=== PATIENT | female | born 2005 | race Caucasian/White ===

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

== ENCOUNTER 2024-01-14 12:10 | Emergency (ER) | payer BC, OTHER ==
[2024-01-14 12:14] VITALS: RESP 16
[2024-01-14 12:53] LABS: Basophils % (A) 0 %; Eosinophils # (A) 0.1 k/uL (0-0.7); Eosinophils % (A) 1 %; HCT 40.6 % (34.0-46.0); HGB 13.9 gm/dL (11.4-16.0); Lymphocytes # (A) 2.1 k/uL (1.0-4.8); Lymphocytes % (A) 23 %; MCH 28.8 pg (25.0-35.0); MCHC 34.3 g/dL (31.0-37.0); Mean Platelet Volume 8.3; Monocytes # (A) 0.4 k/uL (0-1.0); Monocytes % (A) 4 %; Neutrophils # (A) 6.2 k/uL (1.3-7.7); Neutrophils % (A) 69 %; Platelet Count 364 k/uL (150-450); RBC 4.83 m/uL (3.80-5.40); RDW 12.9 % (11.5-15.5); WBC 8.9 k/uL (4.0-11.0)
[2024-01-14 12:56] LABS: Appearance,Urine Clear (Clear); Bilirubin,Urine Negative (Negative); Blood,Urine Negative (Negative); Color,Urine Colorless; Glucose,Urine (UA) Negative (Negative); Ketones,Urine Negative (Negative); Leukocyte Esterase,Urine Negative (Negative); Nitrite,Urine Negative (Negative); Protein,Urine Negative (Negative); Specific Gravity,Urine 1.004 (1.001-1.035); Urobilinogen,Urine <2.0 mg/dL (<2.0)
--- NOTE | 2024-01-14 12:58 | ED ---
Abdominal Pain HPI - General Chief Complaint: Abdominal Pain Stated Complaint: abd pain Time Seen by Provider: 01/14/24 12:24 Source: patient, RN notes reviewed Mode of arrival: ambulatory Limitations: no limitations - History of Present Illness Initial Comments: This is a 18-year-old female presenting with mother for right lower quadrant pain (8.5/10) x 20 minutes. Patient describes pain as sudden onset, constant and sharp radiating to her left lower quadrant. Patient states pain is worsening with associated nausea and presyncope. Patient denies fever, chills, vomiting, diarrhea, constipation, anorexia, urinary symptoms. MD Complaint: abdominal pain Onset/Timin -: minutes(s) Location: RLQ Radiation: LLQ Severity scale (1-10): 9 Quality: sharp Consistency: constant Associated Symptoms: nausea - Related Data Home Medications Medication Instructions Recorded Confirmed Adapalene/Benzoyl Peroxide 1 applic TOPICAL DAILY 02/19/21 02/19/21 [Adapalene-Bnzyl Perox 0.1-2.5%] Doxycycline Hyclate 100 mg PO BID 02/19/21 02/19/21 norethindrone-e.estradioL-iron 1 tab PO DAILY 02/19/21 02/19/21 [Aurovela Fe 1-20 Tablet] Allergies Allergy/AdvReac Type Severity Reaction Status Date / Time No Known Allergies Allergy Verified 01/14/24 12:13 Review of Systems ROS Statement: Those systems with pertinent positive or pertinent negative responses have been documented in the HPI. ROS Other: All systems not noted in ROS Statement are negative. Past Medical History Past Medical History: No Reported History History of Any Multi-Drug Resistant Organisms: None Reported Past Surgical History: No Surgical Hx Reported Past Psychological History: No Psychological Hx Reported Past Alcohol Use History: None Reported Past Drug Use History: None Reported General Exam Limitations: no limitations General appearance: alert, in no apparent distress Head exam: Present: atraumatic, normocephalic, normal inspection Eye exam: Present: normal appearance, PERRL, EOMI. Absent: scleral icterus, conjunctival injection, periorbital swelling ENT exam: Present: normal exam, mucous membranes moist Neck exam: Present: normal inspection. Absent: tenderness, meningismus, lymphadenopathy Respiratory exam: Present: normal lung sounds bilaterally. Absent: respiratory distress, wheezes, rales, rhonchi, stridor Cardiovascular Exam: Present: regular rate, normal rhythm, normal heart sounds. Absent: systolic murmur, diastolic murmur, rubs, gallop, clicks GI/Abdominal exam: Present: soft, tenderness (Positive right lower quadrant and McBurney point tenderness. Positive epigastric tenderness. Positive right abdominal tenderness. Negative Duarte sign), diminished bowel sounds, hypoactive bowel sounds. Absent: distended, guarding, rebound, rigid Extremities exam: Present: normal inspection, full ROM, normal capillary refill, other (Bilateral posterior tibialis pulse +2). Absent: tenderness, pedal edema, joint swelling, calf tenderness Back exam: Present: normal inspection Neurological exam: Present: alert, oriented X3, CN II-XII intact Psychiatric exam: Present: normal affect, normal mood Skin exam: Present: warm, dry, intact, normal color. Absent: rash Course Vital Signs 01/14/24 12:12 Temperature 98.8 F Pulse Rate 92 Respiratory 16 Rate Blood Pressure 121/72 O2 Sat by Pulse 99 Oximetry Medical Decision Making - Medical Decision Making Was pt. sent in by a medical professional or institution (, PA, TUNNEL WORKER, urgent c are, hospital, or [facility]...) When possible be specific @ -[No] Did you speak to anyone other than the patient for history (EMS, parent, family, police, friend...)? What history was obtained from this source @ -[No] Did you review nursing and triage notes (agree or disagree)? Why? @ -[I reviewed and agree with nursing and triage notes] Were old charts reviewed (outside hosp., previous admission, EMS record, old EKG, old radiological studies, urgent care reports/EKG's, [facility] records)? Report findings @ -[No old charts were reviewed] Differential Diagnosis (chest pain, altered mental status, abdominal pain women, abdominal pain men, vaginal bleeding, weakness, fever, dyspnea, syncope, headache, dizziness, GI bleed, back pain, seizure, CVA, palpatations, mental health, musculoskeletal)? @ -Differential Abdominal Pain Women: Appendicitis, Cholecystitis, diverticulosis, ischemic bowel, pancreatitis, hepatitis, UTI, gastroenteritis, AAA, incarcerated hernia, bowel obstruction, constipation, inflammatory bowel, hepatitis, peptic ulcer disease, splenic infarction, perforated viscus, vulvitis, ovarian torsion, PID, kidney stone, placenta abruption, this is not meant to be an all-inclusive list EKG interpreted by me (3pts min.). @ -Not done X-rays interpreted by me (1pt min.). @ -[None done] CT interpreted by me (1pt min.). @ -[None done] U/S interpreted by me (1pt. min.). @ -[None done] What testing was considered but not performed or refused? (CT, X-rays, U/S, labs)? Why? @ -[None] What meds were considered but not given or refused? Why? @ -[None] Did you discuss the management of the patient with other professionals (professionals i.e. DrCarrol, PA, TUNNEL WORKER, lab, RT, psych nurse, psychologist social, expediter service order, teacher, alumni relations officer, classification case manager)? Give summary @ -[No] Was smoking cessation discussed for >3mins.? @ -[No] Was critical care preformed (if so, how long)? @ -[No] Were there social determinants of health that impacted care today? How? (Homelessness, low income, unemployed, alcoholism, drug addiction, transportation, low edu. Level, literacy, decrease access to med. care, correction, rehab)? @ -[No] Was there de-escalation of care discussed even if they declined (Discuss DNR or withdrawal of care, Hospice)? DNR status @ -[No] What co-morbidities impacted this encounter? (DM, HTN, Smoking, COPD, CAD, Cancer, CVA, ARF, Chemo, Hep., AIDS, mental health diagnosis, sleep apnea, morbid obesity)? @ -[None] Was patient admitted / discharged? Hospital course, mention meds given and route, prescriptions, significant lab abnormalities, going to OR and other pertinent info. @ -[hospital course] Undiagnosed new problem with uncertain prognosis? @ -[No] Drug Therapy requiring intensive monitoring for toxicity (Heparin, Nitro, Insulin, Cardizem)? @ -[No] Were any procedures done? @ -[No] Diagnosis/symptom? @ -[default] Acute, or Chronic, or Acute on Chronic? @ -Acute Uncomplicated (without systemic symptoms) or Complicated (systemic symptoms)? @ -Complicated Side effects of treatment? @ -[No] Exacerbation, Progression, or Severe Exacerbation? @ -[No] Poses a threat to life or bodily function? How? (Chest pain, USA, NM, pneumonia, PE, COPD, DKA, ARF, appy, cholecystitis, CVA, Diverticulitis, Homicidal, Suicidal, threat to staff... and all critical care pts) @ -[No] - Lab Data Result diagrams: 01/14/24 12:40 01/14/24 12:40 Lab Results 01/14/24 01/14/24 01/14/24 Range/Units 12:40 12:40 12:40 WBC 8.9 (4.0-11.0) k/uL RBC 4.83 (3.80-5.40) m/uL Hgb 13.9 (11.4-16.0) gm/dL Hct 40.6 (34.0-46.0) % MCV 84.0 (80.0-100.0) fL MCH 28.8 (25.0-35.0) pg MCHC 34.3 (31.0-37.0) g/dL RDW 12.9 (11.5-15.5) % Plt Count 364 (150-450) k/uL MPV 8.3 Neutrophils % 69 % Lymphocytes % 23 % Monocytes % 4 % Eosinophils % 1 % Basophils % 0 % Neutrophils # 6.2 (1.3-7.7) k/uL Lymphocytes # 2.1 (1.0-4.8) k/uL Monocytes # 0.4 (0-1.0) k/uL Eosinophils # 0.1 (0-0.7) k/uL Basophils # 0.0 (0-0.2) k/uL Sodium 138 (137-145) mmol/L Potassium 4.4 (3.5-5.1) mmol/L Chloride 105 (98-107) mmol/L Carbon Dioxide 22 (22-30) mmol/L Anion Gap 11 mmol/L BUN 10 (7-17) mg/dL Creatinine 0.78 (0.52-1.04) mg/dL Est GFR (CKD-EPI)AfAm >90 (>60 ml/min/1.73 sqM) Est GFR (CKD-EPI)NonAf >90 (>60 ml/min/1.73 sqM) Glucose 105 H (74-99) mg/dL Plasma Lactic Acid Yuri 2.5 H* (0.7-2.0) mmol/L Calcium 9.2 (8.4-10.2) mg/dL Total Bilirubin 0.6 (0.2-1.3) mg/dL AST 23 (14-36) U/L ALT 16 (4-34) U/L Alkaline Phosphatase 51 (38-126) U/L Total Protein 7.6 (6.3-8.2) g/dL Albumin 4.6 (3.5-5.0) g/dL Amylase 51 (30-110) U/L Lipase 47 (23-300) U/L Urine Color Urine Appearance (Clear) Urine pH (5.0-8.0) Ur Specific [place] (1.001-1.035) Urine Protein (Negative) Urine Glucose (UA) (Negative) Urine Ketones (Negative) Urine Blood (Negative) Urine Nitrite (Negative) Urine Bilirubin (Negative) Urine Urobilinogen (<2.0) mg/dL Ur Leukocyte Esterase (Negative) Urine HCG, Qual (Not Detectd) 01/14/24 01/14/24 Range/Units 12:40 12:40 WBC (4.0-11.0) k/uL RBC (3.80-5.40) m/uL Hgb (11.4-16.0) gm/dL Hct (34.0-46.0) % MCV (80.0-100.0) fL MCH (25.0-35.0) pg MCHC (31.0-37.0) g/dL RDW (11.5-15.5) % Plt Count (150-450) k/uL MPV Neutrophils % % Lymphocytes % % Monocytes % % Eosinophils % % Basophils % % Neutrophils # (1.3-7.7) k/uL Lymphocytes # (1.0-4.8) k/uL Monocytes # (0-1.0) k/uL Eosinophils # (0-0.7) k/uL Basophils # (0-0.2) k/uL Sodium (137-145) mmol/L Potassium (3.5-5.1) mmol/L Chloride (98-107) mmol/L Carbon Dioxide (22-30) mmol/L Anion Gap mmol/L BUN (7-17) mg/dL Creatinine (0.52-1.04) mg/dL Est GFR (CKD-EPI)AfAm (>60 ml/min/1.73 sqM) Est GFR (CKD-EPI)NonAf (>60 ml/min/1.73 sqM) Glucose (74-99) mg/dL Plasma Lactic Acid Yuri (0.7-2.0) mmol/L Calcium (8.4-10.2) mg/dL Total Bilirubin (0.2-1.3) mg/dL AST (14-36) U/L ALT (4-34) U/L Alkaline Phosphatase (38-126) U/L Total Protein (6.3-8.2) g/dL Albumin (3.5-5.0) g/dL Amylase (30-110) U/L Lipase (23-300) U/L Urine Color Colorless Urine Appearance Clear (Clear) Urine pH 6.0 (5.0-8.0) Ur Specific [place] 1.004 (1.001-1.035) Urine Protein Negative (Negative) Urine Glucose (UA) Negative (Negative) Urine Ketones Negative (Negative) Urine Blood Negative (Negative) Urine Nitrite Negative (Negative) Urine Bilirubin Negative (Negative) Urine Urobilinogen <2.0 (<2.0) mg/dL Ur Leukocyte Esterase Negative (Negative) Urine HCG, Qual Not Detected (Not Detectd) Disposition Clinical Impression: Ovarian cyst Disposition: HOME SELF-CARE Condition: Good Instructions (If sedation given, give patient instructions): Ovarian Cyst (ED) Is patient prescribed a controlled substance at d/c from ED?: No Referrals: Peña Jasmine DO [Primary Care Provider] - 1-2 days Time of Disposition: 14:51
[2024-01-14 13:13] LABS: ALT 16 U/L (4-34); AST 23 U/L (14-36); African American GFR (CKD) >90 (>60 ml/min/1.73 sqM); Albumin 4.6 g/dL (3.5-5.0); Alkaline Phosphatase 51 U/L (38-126); Amylase 51 U/L (30-110); Anion Gap 11 mmol/L; Blood Urea Nitrogen 10 mg/dL (7-17); Calcium 9.2 mg/dL (8.4-10.2); Carbon Dioxide 22 mmol/L (22-30); Chloride 105 mmol/L (98-107); Glucose 105 mg/dL (74-99); Lipase 47 U/L (23-300); Non-African American GFR(CKD) >90 (>60 ml/min/1.73 sqM); Potassium 4.4 mmol/L (3.5-5.1); Sodium 138 mmol/L (137-145); Total Bilirubin 0.6 mg/dL (0.2-1.3); Total Protein 7.6 g/dL (6.3-8.2)
--- NOTE | 2024-01-14 13:50 | CT ---
EXAMINATION TYPE: CT abdomen pelvis w con CT DLP: 676.5 mGycm, Automated exposure control for dose reduction was used. DATE OF EXAM: 01/14/2024 1:39 PM COMPARISON: CT chest abdomen and pelvis 02/19/2021 CLINICAL INDICATION:Female, 18 years old with history of RLQ abdominal pain; rlq pain TECHNIQUE: Standard CT of the abdomen and pelvis following the administration of 100 cc of Isovue 3 00 IV contrast material. Coronal and sagittal reformats were performed. FINDINGS: LOWER CHEST: Unremarkable ABDOMEN LIVER: Unremarkable GALLBLADDER AND BILE DUCTS: Unremarkable. PANCREAS: Unremarkable. SPLEEN: Unremarkable. ADRENAL GLANDS: Unremarkable. KIDNEYS AND URETERS: No evidence of hydronephrosis or renal calculus. The kidneys enhance symmetrical ly. Contrast is demonstrated within both collecting systems on the delayed phase. PELVIS BLADDER: Incompletely distended but grossly unremarkable. REPRODUCTIVE: Unremarkable anteverted uterus. Right ovarian 4.5 cm cystic lesion. ABDOMEN & PELVIS STOMACH AND BOWEL: Stomach and duodenum are unremarkable. The appendix is within normal limits. No fo macho bowel wall thickening. No evidence of bowel obstruction. PERITONEUM: No evidence of pneumoperitoneum. Small amount of simple free fluid within the right adnex a and extending into the pelvic cul-de-sac. VASCULATURE: No evidence of aortic aneurysm. MUSCULOSKELETAL: No acute osseous abnormalities LYMPH NODES: No evidence for lymphadenopathy. SOFT TISSUE/ABDOMINAL WALL: Unremarkable IMPRESSION: 1. Small amount of simple free fluid within the right adnexa extending in the pelvic cul-de-sac. Rig ht ovarian cystic 4.5 cm lesion which may represent a dominant follicle/ovarian cyst. Findings may re present ruptured cyst. Consider further evaluation with pelvic ultrasound as clinically indicated. 2. The appendix is within normal limits. [facility], , 01/14/2024 1:48 PM
[2024-01-14] MEDS: SODIUM CHLORIDE 0.9% 1,000 ML IV STA (14:07)
--- NOTE | 2024-01-14 14:49 | US ---
EXAMINATION TYPE: US pelvic complete DATE OF EXAM: 01/14/2024 COMPARISON: CT same day CLINICAL INDICATION: Female, 18 years old with history of Right lower quadrant, ovary; TECHNIQUE: Transabdominal (TA). Transabdominal grayscale sonographic images of the pelvis were acquired. FINDINGS: Date of LMP: 1-2 weeks ago EXAM MEASUREMENTS: Uterus: 7.0 x 3.3 x 3.7 cm Endometrial Stripe: 0.4 cm Right Ovary: 6.0 x 3.3 x 4.0 cm Left Ovary: 3.1 x 1.4 x 2.3 cm 1. Uterus: anteverted 2. Endometrium: appears wnl 3. Right Ovary: 4.1 x 3.1 x 3.6cm complex mass 4. Left Ovary: wnl Spectral, color and waveform doppler imaging shows good arterial and venous flow within the ovaries ; there is no evidence for ovarian torsion. 5. Bilateral Adnexa: wnl 6. Posterior cul-de-sac: free fluid Unremarkable anteverted uterus. Left ovary is unremarkable. Right ovary demonstrates a cystic lesion with internal echogenicity measuring up to 4.1 cm. No internal color flow. There is normal color flow to the right ovary. Small amount of free fluid identified in the pelvic cul-de-sac. IMPRESSION: 1. Right ovarian 4.1 cm complex cystic lesion favored to represent a hemorrhagic cyst. Follow-up ultr asound in 6-12 weeks is recommended to ensure resolution. 2. Small amount of free fluid identified in the pelvic cul-de-sac. [facility], , 01/14/2024 2:46 PM
[2024-01-14 15:29] VITALS: BP 122/68; PULSE 73; TEMP 98.2
== END 2024-01-14 15:28 | disposition home or self-care (01) ==
LOC: EC 12:10
DX: N83.291 Other ovarian cyst, right side (principal)
CPT/HCPCS: 36415; 80053; 82150; 83605; 83690; 85025; 81003; 81025; 93975; 76856; 74177; 99284; 96360; Q9967

== ENCOUNTER → 2024-03-04 | Outpatient (CLI) | payer BC ==
--- NOTE | 2024-03-04 11:06 | US ---
EXAMINATION TYPE: US pelvis complete transvag DATE OF EXAM: 03/04/2024 COMPARISON: US 01/14/2024 CLINICAL INDICATION: Female, 18 years old with history of N83.209 UNSPECIFIED OVARIAN CYST, UNSPECIFI ED SIDE; Hemorrhagic cyst of ovary. G0. TECHNIQUE: Transvaginal (TV) and Transabdominal (TA) . Transabdominal grayscale sonographic images of the pelvis were acquired. Transvaginal sonographic im ages were medically necessary to better assess the following anatomy: right ovary and per order. Doppler imaging: Not performed. FINDINGS: Date of LMP: 02/19/2024 EXAM MEASUREMENTS: Uterus: 7.6 x 4.6 x 3.6 cm Endometrial Stripe: 0.57 cm Right Ovary: 3.6 x 2.6 x 2.4 cm Left Ovary: 4.2 x 2.3 x 1.8 cm 1. Uterus: Retroverted 2. Endometrium: 0.57 cm. 3. Right Ovary: Appears wnl 4. Left Ovary: Septated anechoic area seen: 1.7 x 1.2 x 1.2 cm. 5. Bilateral Adnexa: Free fluid seen within left adnexa. 6. Posterior cul-de-sac: Free fluid seen. IMPRESSION: Interval resolution of the 4.1 cm complex cystic lesion or hemorrhagic cyst in the right ovary. [facility], , 03/04/2024 11:04 AM
== END | disposition home or self-care (01) ==
LOC: RADUSWWP 10:14
PROVIDERS: ATTEND Family Medicine
DX: N83.201 Unspecified ovarian cyst, right side (principal)
CPT/HCPCS: 76830; 76856

== ENCOUNTER 2024-05-26 12:11 | Emergency (ER) | payer BC ==
[2024-05-26 12:14] VITALS: TEMP 98
[2024-05-26] MEDS: methylPREDNISolone SOD SUCCI 125 MG/2 ML VIAL IV STA (12:49)
[2024-05-26] MEDS: FAMOTIDINE 20 MG/2 ML VIAL IV STA (12:50)
[2024-05-26] MEDS: SODIUM CHLORIDE 0.9% 1,000 ML IV STA (12:50)
[2024-05-26] MEDS: diphenhydrAMINE 50 MG/ML 1 ML VIAL IVP STA (12:50)
--- NOTE | 2024-05-26 13:29 | ED ---
Allergic Reaction HPI - General Chief complaint: Allergic Reaction Stated complaint: throat swelling Time Seen by Provider: 05/26/24 12:15 Source: patient Mode of arrival: ambulatory Limitations: no limitations - History of Present Illness Initial Comments: 18-year-old female presents to the emergency department with possible allergic reaction. Patient just received a steroid shot for allergies. Patient has been receiving these weekly for several months and never had this significant reaction. Patient states that she will get some hives around the site of the injection however after her shot today she felt like her throat was closing off and her chest was heavy. Her last injection was on Saturday. She was supposed to get her next injection on Saturday however the office is closed due to good Saturday and therefore they moved her shot up. She also states that they went up and the dose and these may be possible reasons why she is reacting now. She was offered Benadryl however states she did not want to take it because she did not want to be tired. She denies any chest pain. No oral swelling. No concern for . No other alleviating, precipitating or modifying factors - Related Data Home Medications Medication Instructions Recorded Confirmed Adapalene/Benzoyl Peroxide 1 applic TOPICAL DAILY 02/19/21 02/19/21 [Adapalene-Bnzyl Perox 0.1-2.5%] Doxycycline Hyclate 100 mg PO BID 02/19/21 02/19/21 norethindrone-e.estradioL-iron 1 tab PO DAILY 02/19/21 02/19/21 [Aurovela Fe 1-20 Tablet] Previous Rx's Medication Instructions Recorded Famotidine [Pepcid] 20 mg PO BID #28 tablet 05/26/24 predniSONE [Deltasone] 20 mg PO BID #10 tab 05/26/24 Allergies Allergy/AdvReac Type Severity Reaction Status Date / Time No Known Allergies Allergy Verified 05/26/24 12:14 Review of Systems ROS Statement: Those systems with pertinent positive or pertinent negative responses have been documented in the HPI. ROS Other: All systems not noted in ROS Statement are negative. Past Medical History Past Medical History: No Reported History History of Any Multi-Drug Resistant Organisms: None Reported Past Surgical History: No Surgical Hx Reported Past Psychological History: No Psychological Hx Reported Smoking Status: Never smoker Past Alcohol Use History: None Reported Past Drug Use History: None Reported General Exam Limitations: no limitations General appearance: alert, in no apparent distress Head exam: Present: atraumatic, normocephalic, normal inspection Eye exam: Present: normal appearance, PERRL, EOMI. Absent: scleral icterus, conjunctival injection, periorbital swelling ENT exam: Present: normal exam, mucous membranes moist Neck exam: Present: normal inspection. Absent: tenderness, meningismus, lymphadenopathy Respiratory exam: Present: normal lung sounds bilaterally. Absent: respiratory distress, wheezes, rales, rhonchi, stridor Cardiovascular Exam: Present: regular rate, normal rhythm, normal heart sounds. Absent: systolic murmur, diastolic murmur, rubs, gallop, clicks GI/Abdominal exam: Present: soft, normal bowel sounds. Absent: distended, tenderness, guarding, rebound, rigid Extremities exam: Present: normal inspection, full ROM, normal capillary refill. Absent: tenderness, pedal edema, joint swelling, calf tenderness Back exam: Present: normal inspection Neurological exam: Present: alert, oriented X3, CN II-XII intact Psychiatric exam: Present: normal affect, normal mood Skin exam: Present: warm, dry, intact, normal color, urticaria (Bilaterally to the thighs where injections were performed.). Absent: rash Course Vital Signs 05/26/24 05/26/24 05/26/24 12:12 13:14 14:14 Temperature 98 F Pulse Rate 91 65 85 Respiratory 18 20 16 Rate Blood Pressure 138/89 135/78 135/68 O2 Sat by Pulse 100 98 98 Oximetry 05/26/24 05/26/24 14:21 14:22 Temperature Pulse Rate 80 Respiratory 20 20 Rate Blood Pressure 124/75 O2 Sat by Pulse 98 Oximetry Medical Decision Making - Medical Decision Making Was pt. sent in by a medical professional or institution (, PA, TRANSMITTER SUPERVISOR, urgent care, hospital, or [place] [facility] care facility...) When possible be specific @ -No Did you speak to anyone other than the patient for history (EMS, parent, family, police, friend...)? What history was obtained from this source @ -No Did you review nursing and triage notes (agree or disagree)? Why? @ -I reviewed and agree with nursing and triage notes Were old charts reviewed (outside hosp., previous admission, EMS record, old EKG, old radiological studies, urgent care reports/EKG's, [place] [facility] facility records)? Report findings @ -No old charts were reviewed Differential Diagnosis (chest pain, altered mental status, abdominal pain women, abdominal pain men, vaginal bleeding, weakness, fever, dyspnea, syncope, headache, dizziness, GI bleed, back pain, seizure, CVA, palpatations, mental health, musculoskeletal)? @ -Allergic reaction, hives, anaphylaxis EKG interpreted by me (3pts min.). @ -Not done X-rays interpreted by me (1pt min.). @ -None done CT interpreted by me (1pt min.). @ -None done U/S interpreted by me (1pt. min.). @ -None done What testing was considered but not performed or refused? (CT, X-rays, U/S, labs)? Why? @ -None What meds were considered but not given or refused? Why? @ -None Did you discuss the management of the patient with other professionals (professionals i.e. DrCarrol, PA, TRANSMITTER SUPERVISOR, lab, RT, psych nurse, secondary social studies teacher, diaper machine tender, teacher, business services officer, social work case manager)? Give summary @ -No Was smoking cessation discussed for >3mins.? @ -No Was critical care preformed (if so, how long)? @ -No Were there social determinants of health that impacted care today? How? (Homelessness, low income, unemployed, alcoholism, drug addiction, transportation, low edu. Level, literacy, decrease access to med. care, long term, rehab)? @ -No Was there de-escalation of care discussed even if they declined (Discuss DNR or withdrawal of care, Hospice)? DNR status @ -No What co-morbidities impacted this encounter? (DM, HTN, Smoking, COPD, CAD, Cancer, CVA, ARF, Chemo, Hep., AIDS, mental health diagnosis, sleep apnea, morbid obesity)? @ -None Was patient admitted / discharged? Hospital course, mention meds given and route, prescriptions, significant lab abnormalities, going to OR and other p ertinent info. @ -Upon arrival patient seen and evaluated in bed 17. Thorough history and physical exam was performed. IV access was established. Patient was given intravenous Benadryl, Solu-Medrol and Pepcid. She was observed for several hours and has improvement in her symptoms. At no point did she have any airway compromise. No drooling, trismus, hoarseness or stridor. Patient will be d ischarged at this time and must notify her care team that she had a reaction to the injection. Return for any new or worsening symptoms. Patient agreeable to plan was discharged in stable condition Undiagnosed new problem with uncertain prognosis? @ -No Drug Therapy requiring intensive monitoring for toxicity (Heparin, Nitro, Insulin, Cardizem)? @ -No Were any procedures done? @ -No Diagnosis/symptom? @ -Acute hives, possible allergic reaction Acute, or Chronic, or Acute on Chronic? @ -Acute Uncomplicated (without systemic symptoms) or Complicated (systemic symptoms)? @ -Complicated Side effects of treatment? @ -No Exacerbation, Progression, or Severe Exacerbation? @ -No Poses a threat to life or bodily function? How? (Chest pain, [place], NH, pneumonia, PE, COPD, DKA, ARF, appy, cholecystitis, CVA, Diverticulitis, Homicidal, Suicidal, threat to staff... and all critical care pts) @ -No Disposition Clinical Impression: Urticaria Disposition: HOME SELF-CARE Condition: Stable Instructions (If sedation given, give patient instructions): Urticaria (ED) Additional Instructions: Take Benadryl 25-50 mg every 6 hours for at least the next 3 days. Take pepcid 20 mg twice a day for 3 days. Take prednisone 20 mg twice a day for 3 days. You have been prescribed a few extra tablets just in case. Follow up with your head shipper and notify them of your reaction. Return for any new or worsening symptoms Prescriptions: predniSONE [Deltasone] 20 mg PO BID #10 tab Famotidine [Pepcid] 20 mg PO BID #28 tablet Is patient prescribed a controlled substance at d/c from ED?: No Referrals: Peña Jasmine DO [Primary Care Provider] - 1-2 days Time of Disposition: 14:11
[2024-05-26] MEDS: IBUPROFEN 600 MG TAB PO STA (13:55)
[2024-05-26 14:22] VITALS: BP 124/75; PULSE 80; RESP 20
== END 2024-05-26 14:26 | disposition home or self-care (01) ==
LOC: EC 12:11
DX: L50.9 Urticaria, unspecified (principal); T80.89XA Other complications following infusion, transfusion and therapeutic injection, initial encounter
CPT/HCPCS: 99283; 96374; 96375 ×2; 96361; J1200; J2919; J1308

== ENCOUNTER → 2024-05-28 | Outpatient (CLI) | payer BC ==
--- NOTE | 2024-05-28 13:54 | US ---
EXAMINATION TYPE: US transvaginal DATE OF EXAM: 05/28/2024 COMPARISON: US 03/04/2024 CLINICAL INDICATION: Female, 18 years old with history of N83.201 UNSPECIFIED OVARIAN CYST, RIGHT NIRAV E; Cyst. G0 TECHNIQUE: Transvaginal (TV). Doppler imaging: Not performed. FINDINGS: Date of LMP: 05/21/2024 EXAM MEASUREMENTS: Uterus: 6.7 x 3.7 x 2.9 cm Endometrial Stripe: 0.16 cm Right Ovary: 3.5 x 2.3 x 2.5 cm Left Ovary: 4.0 x 1.7 x 1.8 cm 1. Uterus: Retroverted 2. Endometrium: 0.16 cm 3. Right Ovary: Follicles noted 4. Left Ovary: Follicles noted 5. Bilateral Adnexa: Appear wnl 6. Posterior cul-de-sac: Fluid seen within. Retroverted uterus without focal lesion. Endometrium is within normal limits. Both ovaries appear wit hin normal limits with follicles demonstrated. No concerning ovarian lesion. Small amount of complex fluid identified within the posterior cul-de-sac. IMPRESSION: 1. Small amount of complex fluid within the posterior cul-de-sac. 2. No suspicious ovarian lesion. Bilateral ovarian follicles are demonstrated. [facility], , 05/28/2024 1:52 PM
== END | disposition home or self-care (01) ==
LOC: RADUSWWP 13:08
PROVIDERS: ATTEND Obstetrics & Gynecology
DX: N83.201 Unspecified ovarian cyst, right side (principal)
CPT/HCPCS: 76830